=== PATIENT | male | born 2000 | race Two or more races ===

== ENCOUNTER 2025-09-01 18:25 | Emergency (ER) | payer OTHER ==
[~2025-09-01] VITALS: Ht 182.9 cm; Wt 78.0 kg
[2025-09-01 23:49] LABS: BASO % 0.4 % (0.1-1.2); EOS # 0.07 (0.04-0.54); EOS % 1.0 % (0.7-7.0); LYMPH # 1.77 (1.18-3.74); LYMPH % 24.0 % (19.3-53.1); MEAN PLATELET VOLUME 12.40 fl (9.4-12.4); MONO # 1.11 (0.24-0.82); NEUT # 4.37 (1.56-6.13); NEUT % 59.4 % (34.0-71.1); RED CELL DISTRIBUTION WIDTH 11.7 % (11.6-14.4)
[2025-09-01 23:50] LABS: MONO % 15.1 % (4.7-12.5)
[2025-09-02 02:04] LABS: COVID-19 AG NEGATIVE (NEGATIVE)
[2025-09-02] MEDS ORDERED: ACETAMINOPHEN500 M1 PO (02:27)
[2025-09-02] MEDS ORDERED: GILTUSS COUGH-118 M1 PO (02:27)
== END 2025-09-02 03:33 | disposition home or self-care (01) ==
LOC: ER 18:25
PROVIDERS: Preventive Medicine Public Health & General Preventive Medicine
DX: B34.9 Viral infection, unspecified (principal); J06.9 Acute upper respiratory infection, unspecified; Z20.822 Contact with and (suspected) exposure to COVID-19